=== PATIENT | male | born 1970 | race African-American/Black ===

== ENCOUNTER 2016-07-03 02:00 | Emergency (ER) ==
[2016-07-03 02:09] VITALS: BP 130/83; TEMP 98.4; BMI 32.0
[2016-07-03 02:54] LABS: BASOPHILS # (AUTO) 0.1 K/uL (0-0.2); BASOPHILS % (AUTO) 0.7 % (0.0-3.0); EOSINOPHILS # (AUTO) 0.1 K/ul (0.0-0.7); EOSINOPHILS % (AUTO) 1.5 % (0.0-7.0); HEMATOCRIT 43.5 % (42.0-52.0); HEMOGLOBIN 14.5 g/dl (14.0-18.0); IMMATURE GRANULOCYTE % (AUTO) 0.1 % (0.0-5.0); LYMPHOCYTES # (AUTO) 2.8 K/uL (0.60-3.4); LYMPHOCYTES % (AUTO) 33.7 (10.0-50.0); MEAN CORPUSCULAR HGB CONC 33.3 (31.8-35.4); MEAN CORPUSCULAR VOLUME 89.9 fl (80.0-94.0); MONOCYTES # (AUTO) 0.9 K/uL (0.4-2.0); MONOCYTES % (AUTO) 10.2 (0-10); NEUTROPHILS # (AUTO) 4.5 K/ul (2.0-6.9); NEUTROPHILS % (AUTO) 53.8; PLATELET COUNT 311 10^3/uL (140-440); RED BLOOD COUNT 4.84 10^6/ul (4.70-6.10); WHITE BLOOD COUNT 8.42 K/ul (4.2-10.2)
[2016-07-03 03:02] LABS: BILIRUBIN,URINE Negative (NEGATIVE); KETONES,URINE Negative (NEGATIVE); LEUKOCYTE ESTERASE ,URINE Negative (NEGATIVE); NITRITE,URINE Negative (NEGATIVE); PROTEIN,URINE Negative (NEGATIVE); URINE, BLOOD Negative (NEGATIVE)
[2016-07-03 03:03] LABS: ADD URINE MICROSCOPIC NO
[2016-07-03 03:16] LABS: COCAIN SCREEN,URINE NEGATIVE (NEGATIVE)
[2016-07-03 03:44] LABS: ALBUMIN 3.8 g/dL (3.4-5.0); ALBUMIN/GLOBULIN RATIO 0.93; ANION GAP 15.2; BILIRUBIN,TOTAL 1.07 mg/dL (0.00-1.20); BUN/CREATININE RATIO 7.01; CALCIUM 9.5 mg/dL (8.2-10.2); CREATININE 1.14 mg/dL (0.60-1.10); POTASSIUM 4.2 mmol/L (3.5-5.1); TOTAL PROTEIN 7.9 g/dL (6.4-8.2)
--- NOTE | 2016-07-03 05:15 | ED.PDOC ---
[id number] Complaint: wants to go to [facility] and get [facility]s adjusted Time Seen by Physician: 05:13 Mode of Arrival: Walk-In Information Source: Patient Exam Limitations: No limitations Primary Care Provider: ELLIOT LOPEZ Nursing and Triage Documentation Reviewed and Agree: Yes Psychological Complaint Exam - Psychiatric Complaint/Exam Patient Complains Of: Present: Other Onset/Duration: uknown Symptoms Are: Still present Timing: Constant Episodes Lasting: Days Initial Severity: Moderate Current Severity: Severe Character: Present: Manic. Absent: Depressed, Fearful, Anxious, Angry, Frustrated Aggravating: Reports: Medication noncompliance Associated Signs And Symptoms: Reports: Paranoid behavior, Sleep disturbance. Denies: Hostile, Confused, Hallucinating, Appetite change Completed Suicide Risk Factors: None Patient In Custody Of Police: No Social Withdrawal Present: No Social Isolation Present: No Prior Suicide Attempt: No Injury From Prior Suicide Attempt: No Related Surgical History: Reports: None Patient Uncooperative For Exam: No Mood: Present: Paranoid, Manic, Agitated Appearance: Present: Clean Thought Process: Present: Illogical Insight: Present: Poor Memory: Intact Judgement: Normal Danger To Others: No Patient Medically Stable For: Psych evaluation Differential Diagnoses: Bipolar Disorder, Schizophrenia Review of Systems - Review Of Systems Constitutional: Reports: No symptoms Eyes: Reports: No symptoms Ears, Nose, Mouth, Throat: Reports: No symptoms Respiratory: Reports: No symptoms Cardiac: Reports: No symptoms GI: Reports: No symptoms : Reports: No symptoms Musculoskeletal: Reports: No symptoms Skin: Reports: No symptoms Neurological: Reports: No symptoms Endocrine: Reports: No symptoms Hematologic/Lymphatic: Reports: No symptoms All Other Systems: Reviewed and Negative Past Medical History - Past Medical History Endocrine: Reports: Unknown Cardiovascular: Reports: Unknown Respiratory: Reports: Unknown Hematological: Reports: Unknown Gastrointestinal: Reports: Unknown Genitourinary: Reports: Unknown Neuro/Psych: Reports: Unknown Musculoskeletal: Reports: Unknown Cancer: Reports: Unknown - Surgical History General Surgical History: Reports: Unknown - Family History Family History: Reports: Unknown - Social History Smoking Status: Former smoker Hx Substance Use: No Alcohol Screening: Occasionally Lives: With family - Immunizations Tetanus Shot up to Date: (UNKNOWN) Physical Exam - Physical Exam Appearance: Well-appearing Eyes: ADELINA, EOMI, Conjunctiva clear ENT: Ears normal, Nose normal, Oropharynx normal Neck: Supple Respiratory: Airway patent, Breath sounds clear, Breath sounds equal, Respirations nonlabored Cardiovascular: RRR, Pulses normal, No rub, No murmur GI/: Soft, Nontender, No masses, Bowel sounds normal, No Organomegaly Musculoskeletal: Normal strength Skin: Warm, Dry, Normal color Neurological: Sensation intact, Motor intact, Reflexes intact, Cranial nerves intact, Alert, Oriented Psychiatric: Affect appropriate, Mood appropriate Critical Care Note - Critical Care Note Total Time (mins): 0 Course - Course Hematology/Chemistry: 07/03/16 02:45 07/03/16 02:45 Orders, Labs, Meds: Lab Review 07/03/16 07/03/16 02:41 02:45 WBC 8.42 RBC 4.84 Hgb 14.5 Hct 43.5 MCV 89.9 MCH 30.0 MCHC 33.3 RDW Coeff of [place] 13.4 Plt Count 311 Immature Gran % (Auto) 0.1 Neut % (Auto) 53.8 Lymph % (Auto) 33.7 [place] % (Auto) 10.2 H Eos % (Auto) 1.5 Baso % (Auto) 0.7 Immature Gran # (Auto) 0.0 Neut # 4.5 Lymph # 2.8 [place] # 0.9 Eos # 0.1 Baso # 0.1 Sodium 138 Potassium 4.2 Chloride 103 Carbon Dioxide 24 Anion Gap 15.2 BUN 8 Creatinine 1.14 H Estimated GFR (MDRD) 83.00 BUN/Creatinine Ratio 7.01 Glucose 109 H Calcium 9.5 Total Bilirubin 1.07 AST 26 ALT 25 Alkaline Phosphatase 70 Total Protein 7.9 Albumin 3.8 Globulin 4.1 Albumin/Globulin Ratio 0.93 TSH 1.974 Urine Color Yellow Urine Clarity Clear Urine pH 6.0 Ur Specific [place] 1.010 Urine Protein Negative Urine Glucose (UA) Negative Urine Ketones Negative Urine Blood Negative Urine Nitrite Negative Urine Bilirubin Negative Urine Urobilinogen 0.2 Ur Leukocyte Esterase Negative Urine Opiates Screen Negative Ur Oxycodone Screen Negative Urine Methadone Screen Negative Ur Propoxyphene Screen Negative Ur Barbiturates Screen Negative U Tricyclic Antidepress Negative Ur Phencyclidine Scrn Negative Ur Amphetamine Screen Negative U Methamphetamines Scrn Negative U Benzodiazepines Scrn Positive Urine Cocaine Screen Negative U Cannabinoids Screen Negative Plasma/Serum Alcohol < 10.0 Orders Category Date Time Status EKG-(ED ONLY) Stat CARDIO 07/03/16 02:07 Completed Mental Health Consult [ED MENTAL HEALTH CONSULT] .ONCE EMERGENCY 07/03/16 02: 14 Active CBC W/ AUTO DIFF Stat LAB 07/03/16 02:45 Completed COMPREHENSIVE METABOLIC PANEL Stat LAB 07/03/16 02:45 Completed ETOH LEVEL [BLOOD ALCOHOL] Stat LAB 07/03/16 02:45 Completed TSH [THYROID STIMULATING HORMONE] Stat LAB 07/03/16 02:45 Completed URINALYSIS C & S IF INDICATED Stat LAB 07/03/16 02:41 Completed URINE DRUG SCREEN (RAPID FOR ED) [DRUG SCREEN, URINE, LAB 07/03/16 02:41 Completed RAPID] Stat mental health consulted--refused to go anywhere but [facility] --they were contacted --did not feel he would benefit from their services at this time Vital Signs: Temp Pulse Resp BP Pulse Ox 07/03/16 02:01 98.4 F 116 H 20 130/83 99 Departure - Departure Time of Disposition: 05:16 Disposition: HOME SELF-CARE Discharge Problem: Bipolar 1 disorder Instructions: Bipolar Disorder (ED) Condition: Good Pt referred to PMD for follow-up: Yes Additional Instructions: Follow up with counselor today. Allergies/Adverse Reactions: Allergies No Known Allergies Allergy (Verified 07/03/16 02:09) Home Medications: Ambulatory Orders Lorazepam 2 mg PO TID 05/21/14 Haloperidol 10 mg PO BID 04/30/15 Transfer Form Completed: Yes Disposition Discussed With: Patient
== END 2016-07-03 05:44 | disposition home or self-care (01) ==
LOC: ED 02:00
DX: F31.9 Bipolar disorder, unspecified (principal); Z79.899 Other long term (current) drug therapy
CPT/HCPCS: 36415; 80053; 80306; 80307; 81001; 84443; 85025; 93005; 93010; 99283

== ENCOUNTER 2016-09-21 16:01 | Outpatient (CLI) ==
[2016-09-21 17:03] LABS: ALBUMIN 3.4 g/dL (3.4-5.0); ALBUMIN/GLOBULIN RATIO 0.83; ANION GAP 12.9; BILIRUBIN,TOTAL 0.91 mg/dL (0.00-1.20); BUN/CREATININE RATIO 9.25; CALCIUM 9.3 mg/dL (8.2-10.2); CHOL/HDL RATIO 4.6 (4.5-6.4); CREATININE 1.08 mg/dL (0.60-1.10); POTASSIUM 3.9 mmol/L (3.5-5.1); TOTAL PROTEIN 7.5 g/dL (6.4-8.2)
== END 2016-09-21 16:02 | disposition home or self-care (01) ==
LOC: LAB 16:01
PROVIDERS: ATTEND Nurse Practitioner Family
DX: F25.9 Schizoaffective disorder, unspecified (principal); E78.5 Hyperlipidemia, unspecified
CPT/HCPCS: 36415; 80053; 80061

== ENCOUNTER 2017-04-10 17:54 | Inpatient (IN) ==
[2017-04-10 18:02] VITALS: BP 155/87; TEMP 98; BMI 32.3
[2017-04-10] MEDS ORDERED: HALDOL IM STA (18:06)
[2017-04-10] MEDS ORDERED: ATIVAN IM STA (18:06)
[2017-04-10] MEDS ORDERED: COGENTIN IM STA (18:06)
--- NOTE | 2017-04-10 18:19 | ED.PDOC ---
General Stated Complaint: brought in by family--forced rapid speech with flight of ideas and hallucinations--recently had haldol discontinued Time Seen by Physician: 18:00 Mode of Arrival: Walk-In Information Source: Patient, Family Exam Limitations: No limitations Nursing and Triage Documentation Reviewed and Agree: Yes <GALEDONYA - Last Filed: 04/10/17 18:17> <KEVIN LAWTON - Last Filed: 04/10/17 22:47> ED Provider: Dr. KEVIN LAWTON Chief Complaint: Psychiatric Complaint Primary Care Provider: ELLIOT LOPEZ Psychological Complaint Exam - Psychiatric Complaint/Exam Patient Complains Of: Present: Other Onset/Duration: a few days Symptoms Are: Still present Timing: Constant Initial Severity: Mild Current Severity: Mild Character: Present: Manic, Anxious, Frustrated. Absent: Depressed, Fearful, Angry Aggravating: Reports: None Associated Signs And Symptoms: Reports: Hallucinating, Paranoid behavior, Sleep disturbance. Denies: Hostile, Confused, Appetite change Completed Suicide Risk Factors: Male Patient Accompanied By: Family Patient In Custody Of Police: No Social Withdrawal Present: No Social Isolation Present: No Prior Suicide Attempt: No Injury From Prior Suicide Attempt: No Related Surgical History: Reports: None Patient Uncooperative For Exam: No Mood: Present: Paranoid, Hallucinating, Manic, Agitated, Anxious. Absent: Depressed, Angry, Guarded Appearance: Present: Clean Thought Process: Present: Flight of ideas Insight: Present: Limited Memory: Intact Judgement: Impaired Patient Medically Stable For: Psych evaluation, Referral, Transfer Differential Diagnoses: Bipolar Disorder, Acute Psychosis, Schizophrenia <GALEDONYA - Last Filed: 04/10/17 18:17> Review of Systems - Review Of Systems Constitutional: Reports: No symptoms Eyes: Reports: No symptoms Ears, Nose, Mouth, Throat: Reports: No symptoms Respiratory: Reports: No symptoms Cardiac: Reports: No symptoms GI: Reports: No symptoms : Reports: No symptoms Musculoskeletal: Reports: No symptoms Skin: Reports: No symptoms Neurological: Reports: Cognitive dysfunction Endocrine: Reports: No symptoms Hematologic/Lymphatic: Reports: No symptoms All Other Systems: Reviewed and Negative <GALEDONYA - Last Filed: 04/10/17 18:17> Past Medical History - Past Medical History Previously Healthy: No Endocrine: Reports: Unknown Cardiovascular: Reports: Unknown Respiratory: Reports: Unknown Hematological: Reports: Unknown Gastrointestinal: Reports: Unknown Genitourinary: Reports: Unknown Neuro/Psych: Reports: Bipolar Disorder Musculoskeletal: Reports: Unknown Cancer: Reports: Unknown - Surgical History General Surgical History: Reports: Unknown - Family History Family History: Reports: Unknown - Social History Smoking Status: Former smoker Hx Substance Use: No Alcohol Screening: Occasionally Lives: With family <DONYA BEASLEY - Last Filed: 04/10/17 18:17> Physical Exam - Physical Exam Appearance: Well-appearing, No pain distress, Well-nourished Eyes: ADELINA ENT: Ears normal, Nose normal, Oropharynx normal Neck: Supple Respiratory: Airway patent, Breath sounds clear, Breath sounds equal, Respirations nonlabored Cardiovascular: RRR, Pulses normal, No rub, No murmur GI/: Soft, Nontender, No masses, Bowel sounds normal, No Organomegaly Musculoskeletal: Normal strength, ROM intact, No edema, No calf tenderness Skin: Warm, Dry, Normal color Neurological: Alert, Disoriented Psychiatric: Affect appropriate, Mood appropriate <GALEDONYA - Last Filed: 04/10/17 18:17> Re-Evaluation - Re-Evaluation Time of Re-Evaluation: 22:30 (patient will be waiting to be transfered ) Status: Improved (much calmer ) <KEVIN LAWTON - Last Filed: 04/10/17 22:47> Critical Care Note - Critical Care Note Total Time (mins): 0 <KEVIN ALWTON - Last Filed: 04/10/17 22:47> Course - Course Hematology/Chemistry: 04/10/17 18:20 04/10/17 18:20 <KEVIN LAWTON - Last Filed: 04/10/17 22:47> - Course Orders, Labs, Meds: Lab Review 04/10/17 04/10/17 04/10/17 18:20 18:20 18:56 WBC 7.85 RBC 4.45 L Hgb 13.7 L Hct 38.9 L MCV 87.4 MCH 30.8 MCHC 35.2 RDW Coeff of Willie 13.2 Plt Count 314 Immature Gran % (Auto) 0.1 Neut % (Auto) 58.6 Lymph % (Auto) 32.5 [place] % (Auto) 7.4 Eos % (Auto) 0.6 Baso % (Auto) 0.8 Immature Gran # (Auto) 0.0 Neut # 4.6 Lymph # 2.6 [place] # 0.6 Eos # 0.1 Baso # 0.1 Sodium 137 Potassium 3.9 Chloride 104 Carbon Dioxide 25 Anion Gap 11.9 BUN 10 Creatinine 1.22 H Estimated GFR (MDRD) 77.00 BUN/Creatinine Ratio 8.19 Glucose 114 H Calcium 10.1 Total Bilirubin 1.62 H AST 39 H ALT 23 Alkaline Phosphatase 72 Total Protein 8.1 Albumin 4.0 Globulin 4.1 Albumin/Globulin Ratio 0.98 TSH 1.127 Urine Color Urine Clarity Urine pH Ur Specific [place] Urine Protein Urine Glucose (UA) Urine Ketones Urine Blood Urine Nitrite Urine Bilirubin Urine Urobilinogen Ur Leukocyte Esterase Salicylate Level mg/dL < 5.0 Urine Opiates Screen Negative Ur Oxycodone Screen Negative Urine Methadone Screen Negative Ur Propoxyphene Screen Negative Acetaminophen < 3 L Ur Barbiturates Screen Negative U Tricyclic Antidepress Negative Ur Phencyclidine Scrn Negative Ur Amphetamine Screen Negative U Methamphetamines Scrn Negative U Benzodiazepines Scrn Positive Urine Cocaine Screen Negative U Cannabinoids Screen Negative Plasma/Serum Alcohol < 10.0 04/10/17 18:56 WBC RBC Hgb Hct MCV MCH MCHC RDW Coeff of Willie Plt Count Immature Gran % (Auto) Neut % (Auto) Lymph % (Auto) [place] % (Auto) Eos % (Auto) Baso % (Auto) Immature Gran # (Auto) Neut # Lymph # [place] # Eos # Baso # Sodium Potassium Chloride Carbon Dioxide Anion Gap BUN Creatinine Estimated GFR (MDRD) BUN/Creatinine Ratio Glucose Calcium Total Bilirubin AST ALT Alkaline Phosphatase Total Protein Albumin Globulin Albumin/Globulin Ratio TSH Urine Color Yellow Urine Clarity Clear Urine pH 6.0 Ur Specific [place] <=1.005 Urine Protein Negative Urine Glucose (UA) Negative Urine Ketones Negative Urine Blood Negative Urine Nitrite Negative Urine Bilirubin Negative Urine Urobilinogen 0.2 Ur Leukocyte Esterase Negative Salicylate Level mg/dL Urine Opiates Screen Ur Oxycodone Screen Urine Methadone Screen Ur Propoxyphene Screen Acetaminophen Ur Barbiturates Screen U Tricyclic Antidepress Ur Phencyclidine Scrn Ur Amphetamine Screen U Methamphetamines Scrn U Benzodiazepines Scrn Urine Cocaine Screen U Cannabinoids Screen Plasma/Serum Alcohol Orders Category Date Time Status CBC W/ AUTO DIFF Stat LAB 04/10/17 18:20 Completed COMPREHENSIVE METABOLIC PANEL Stat LAB 04/10/17 18:20 Completed ETOH LEVEL [BLOOD ALCOHOL] Stat LAB 04/10/17 18:20 Completed SALICYLATE Stat LAB 04/10/17 18:20 Completed THYROID STIMULATING HORMONE Stat LAB 04/10/17 18:20 Completed TYLENOL LEVEL [ACETAMINOPHEN] Stat LAB 04/10/17 18:20 Completed URINALYSIS C & S IF INDICATED Stat LAB 04/10/17 18:56 Completed URINE DRUG SCREEN (RAPID FOR ED) [DRUG SCREEN, URINE, LAB 04/10/17 18:56 Completed RAPID] Stat Benztropine Mesylate Inj [Cogentin] MEDS 04/10/17 18:06 Discontinued 2 mg IM ONCE STA Haloperidol Lactate Inj [Haldol] MEDS 04/10/17 18:06 Discontinued 5 mg IM ONCE STA Lorazepam Inj [Ativan] MEDS 04/10/17 18:06 Discontinued 2 mg IM ONCE STA Ziprasidone Mesylate [Geodon] MEDS 04/10/17 19:39 Discontinued 10 mg IM ONCE STA Medications Generic Name Dose Route Start Last Admin Trade Name Freq PRN Reason Stop Dose Admin Lorazepam 1 mg 04/10/17 22:24 Ativan IM Q4H PRN Agitation Lorazepam 1 mg 04/10/17 22:36 Ativan PO TID PRN Anxiety Ziprasidone 20 mg 04/10/17 22:36 Geodon IM Q4H PRN severe aggitation and Psychosi Discontinued Medications Generic Name Dose Route Start Last Admin Trade Name Freq PRN Reason Stop Dose Admin Benztropine Mesylate 2 mg 04/10/17 18:06 04/10/17 18:17 Cogentin IM 04/10/17 18:07 2 mg ONCE STA Administration Haloperidol Lactate 5 mg 04/10/17 18:06 04/10/17 18:16 Haldol IM 04/10/17 18:07 5 mg ONCE STA Administration Lorazepam 2 mg 04/10/17 18:06 04/10/17 18:16 Ativan IM 04/10/17 18:07 2 mg ONCE STA Administration Ziprasidone 10 mg 04/10/17 19:39 04/10/17 19:50 Geodon IM 04/10/17 19:40 10 mg ONCE STA Administration Vital Signs: Temp Pulse Resp BP Pulse Ox 04/10/17 17:58 98 F 101 H 20 155/87 H 98 Departure <DONYA BEASLEY - Last Filed: 04/10/17 18:17> - Departure Time of Disposition: 22:44 Pt referred to PMD for follow-up: No Disposition Discussed With: Patient, Family <KEVIN LAWTON - Last Filed: 04/10/17 22:47> - Departure Disposition: ADMITTED INPATIENT Discharge Problem: Psychosis, Bipolar affective disorder Condition: Fair Allergies/Adverse Reactions: Allergies No Known Allergies Allergy (Verified 07/03/16 02:09) Discharge Problem: Psychosis Qualifiers: Psychosis type: brief psychotic disorder Qualified Code(s): F23 - Brief psychotic disorder Bipolar affective disorder Qualifiers: Active/Remission status: currently active Current bipolar episode type: manic Current episode severity: severe Psychotic features: with psychotic features Qualified Code(s): F31.2 - Bipolar disorder, current episode manic severe with psychotic features
[2017-04-10] MEDS ORDERED: GEODON IM STA (19:39)
[2017-04-10] MEDS ORDERED: ATIVAN IM PRN (22:24)
[2017-04-10] MEDS ORDERED: ATIVAN PO PRN (22:36)
[2017-04-10] MEDS ORDERED: GEODON IM PRN (22:36)
[2017-04-11] MEDS ORDERED: ATIVAN ONE (03:35)
--- NOTE | 2017-06-24 14:11 | SSS ---
DATE OF SERVICE: 04/11/17 CHIEF COMPLAINT: Hallucination and paranoid behavior. He had been feeling weak , depressed. Not planning to hurt himself, but he has been seeing the things and he thinks that someone is trying to talk to him and he wanted to be getting some help. HISTORY OF PRESENT ILLNESS: The patient came to the emergency room and was seen by Dr. Giron in the ER. Blood pressure was 155/87. Initial blood work was normal. Mild anemia. Total bilirubin was 1.62. Drug screen was negative, except for Benzo positive. At that time, he was admitted to the hospital for observation and to be sent to [facility] or some other facility where he can be getting the treatment. REVIEW OF SYSTEMS: CONSTITUTIONAL: No night sweats. No fatigue, malaise, lethargy. No fever or chills. HEENT: Eyes: No visual changes. No eye pain. No eye discharge. ENT: No runny nose. No epistaxis. No sinus pain. No sore throat. No odynophagia. No ear pain. No congestion. RESPIRATORY: No cough, no congestion. No hemoptysis. No shortness of breath. CARDIOVASCULAR: No angina symptoms. No CHF symptoms. No atypical chest pain for CAD. No palpitations. No orthopnea. GASTROINTESTINAL: No abdominal pain. No nausea or vomiting. No diarrhea or constipation. No hematemesis. No hematochezia. GENITOURINARY: No dysuria. No hematuria. No obstructive symptoms. No discharge. No pain. No significant abnormal bleeding. MUSCULOSKELETAL: No musculoskeletal pain. No joint swelling. NEUROLOGICAL: Awake, alert, oriented to time, place and person. No headache. No neck pain. No syncope. No seizures. No dizziness. PSYCHIATRIC: Anxious and depressed. No suicidal thoughts. No homicidal thoughts. SKIN: No rash. No lesions. No wounds. ENDOCRINE: No unexplained weight loss. No weight gain. HEMATOLOGIC/LYMPHATIC: No anemia. No purpura. No petechiae. No prolonged or excessive bleeding. No palpable lymph nodes. PAST HISTORY: Hyperlipidemia Hypertension Schizophrenia Paranoid behavior Bipolar disorder PAST SURGICAL HISTORY: None. PERSONAL HISTORY: Does drink alcohol and smokes. No drugs. FAMILY HISTORY: High blood pressure. ALLERGIES: No known drug allergies. HOME MEDICATIONS: Amantadine, Lorazepam and Zocor. PHYSICAL EXAMINATION: GENERAL: The patient is awake, alert and oriented times three. Very restless. Anxious. VITAL SIGNS: Blood pressure 155/87, respiratory rate 20, heart rate 101, temperature 98.0, saturation 98. HEENT: Head normocephalic, atraumatic. Mucosa dry. Eyes: Extraocular muscles are intact. Pupils are equal, round and reactive to light and accommodation. Ears: No lesions. Nose appeared normal. Throat: No exudate or erythema. NECK: Supple. No JVD, no carotid bruit. No lymphadenopathy or thyromegaly. LUNGS: Clear to auscultation. Percussion note normal. Chest symmetrical. HEART: S1, S2, no S3. No murmurs. No cyanosis or clubbing. No ascites. Pulses: Dorsalis pedis and posterior tibial pulses +1 to +2 both sides. ABDOMEN: Soft. Nontender. Bowel sounds active. No CVA tenderness. No mass felt. EXTREMITIES: No edema. Full range of motion of all extremities, equal. NEUROLOGIC: No focal deficit. Cranial nerves II through XII are grossly intact. No headache, no double vision or headache. Anxious, flight of thoughts. SKIN: Not dry. Intact. Turgor - normal. LYMPHATIC: No palpable lymph nodes/no lymphedema. MUSCULOSKELETAL: Normal joints with no swelling. Muscle tone is normal. Old/present records reviewed Office records reviewed. LABS/EKG'S/X-RAY/ECHO/ABG: White count 7.85, hemoglobin 13.7, hematocrit 38.9, platelet count 314, sodium 137, potassium 3.9, chloride 104, bicarb 25, BUN 10, creatinine 1.22. Drug screen is benzo positive. ASSESSMENT: 1. HALLUCINATIONS AND DELUSIONS. NEEDING HELP 2. BIPOLAR 3. SCHIZOPHRENIA 4. DEPRESSION 5. ANXIETY 6. HYPERTENSION 7. DYSLIPIDEMIA PLAN: 1. Ruth placement, but the patient after admission been restless and did not want to stay. Signed out against medical advice. [facility] CENTERGloria
== END 2017-04-11 05:25 | disposition left against medical advice (07) | DRG 885 ==
LOC: ED 17:54 → SCU 21:57
PROVIDERS: ADMIT Emergency Medicine; ATTEND Emergency Medicine
DX: F23 Brief psychotic disorder (principal); F31.2 Bipolar disorder, current episode manic severe with psychotic features; F41.8 Other specified anxiety disorders; I10 Essential (primary) hypertension; E78.5 Hyperlipidemia, unspecified
CPT/HCPCS: 36415; 80053; 80306; 80307; 81001; 84443; 85025; 96372; 99223; 99285

== ENCOUNTER 2017-04-11 18:18 | Emergency (ER) ==
[2017-04-11] MEDS ORDERED: GEODON IM STA (18:20)
[2017-04-11] MEDS ORDERED: COGENTIN IM STA (18:21)
[2017-04-11] MEDS ORDERED: ATIVAN IM STA (18:21)
[2017-04-11 18:37] LABS: BASOPHILS % (AUTO) 0.6 % (0.0-3.0); EOSINOPHILS # (AUTO) 0.1 K/ul (0.0-0.7); EOSINOPHILS % (AUTO) 1.6 % (0.0-7.0); HEMATOCRIT 37.7 % (42.0-52.0); HEMOGLOBIN 13.2 g/dl (14.0-18.0); IMMATURE GRANULOCYTE % (AUTO) 0.1 % (0.0-5.0); LYMPHOCYTES # (AUTO) 2.3 K/uL (0.60-3.4); LYMPHOCYTES % (AUTO) 34.3 (10.0-50.0); MEAN CORPUSCULAR HEMOGLOBIN 30.6 pg (27.0-31.0); MEAN CORPUSCULAR VOLUME 87.5 fl (80.0-94.0); MONOCYTES # (AUTO) 0.5 K/uL (0.4-2.0); MONOCYTES % (AUTO) 7.9 (0-10); NEUTROPHILS # (AUTO) 3.8 K/ul (2.0-6.9); NEUTROPHILS % (AUTO) 55.5; PLATELET COUNT 287 10^3/uL (140-440); RED BLOOD COUNT 4.31 10^6/ul (4.70-6.10); WHITE BLOOD COUNT 6.82 K/ul (4.2-10.2)
[2017-04-11 18:46] VITALS: BP 113/64; TEMP 98.6; BMI 33.9
[2017-04-11 19:17] LABS: ACETAMINOPHEN < 3 ug/ml (10-30); ALANINE AMINOTRANSFERASE 22 U/L (12-78); ALBUMIN 3.6 g/dL (3.4-5.0); ALBUMIN/GLOBULIN RATIO 0.95; ALKALINE PHOSPHATASE 66 U/L (50-136); ANION GAP 12.9; ASPARTATE AMINO TRANSFERASE 35 U/L (15-37); BILIRUBIN,TOTAL 1.54 mg/dL (0.00-1.20); BLOOD UREA NITROGEN 10 mg/dL (7-18); BUN/CREATININE RATIO 8.69; CALCIUM 9.4 mg/dL (8.2-10.2); CARBON DIOXIDE 24 mmol/L (21-32); CHLORIDE 105 mmol/L (98-107); CREATININE 1.15 mg/dL (0.60-1.10); GLUCOSE 120 mg/dL (70-100); POTASSIUM 3.9 mmol/L (3.5-5.1); SALICYLATE < 5.0 mg/dL (2.8-20.0); SODIUM 138 mmol/L (136-145); TOTAL PROTEIN 7.4 g/dL (6.4-8.2)
[2017-04-11 19:53] LABS: ADD URINE MICROSCOPIC NO; BILIRUBIN,URINE Negative (NEGATIVE); KETONES,URINE Negative (NEGATIVE); LEUKOCYTE ESTERASE ,URINE Negative (NEGATIVE); NITRITE,URINE Negative (NEGATIVE); PH,URINE 6.5 (5-9); PROTEIN,URINE Negative (NEGATIVE); URINE, BLOOD Negative (NEGATIVE)
[2017-04-11 20:02] LABS: COCAIN SCREEN,URINE NEGATIVE (NEGATIVE)
--- NOTE | 2017-04-12 05:32 | ED.PDOC ---
General ED Provider: Dr. DONYA ELIZALDE-ER Chief Complaint: Psychiatric Complaint Stated Complaint: brought in by police causing disturbance at local [place] Time Seen by Physician: 18:20 Mode of Arrival: Walk-In Information Source: Patient, Police Exam Limitations: No limitations Primary Care Provider: ELLIOT LOPEZ Nursing and Triage Documentation Reviewed and Agree: Yes Psychological Complaint Exam - Psychiatric Complaint/Exam Patient Complains Of: Present: Other Onset/Duration: 24hrs Symptoms Are: Still present Timing: Constant Initial Severity: Mild Current Severity: Moderate Character: Present: Manic, Anxious, Frustrated Aggravating: Reports: None Associated Signs And Symptoms: Reports: Paranoid behavior, Sleep disturbance. Denies: Hostile, Confused, Hallucinating Completed Suicide Risk Factors: Male Patient Accompanied By: Family Patient In Custody Of Police: No Social Withdrawal Present: No Social Isolation Present: No Prior Suicide Attempt: No Injury From Prior Suicide Attempt: No Related Surgical History: Reports: None Patient Uncooperative For Exam: No Mood: Present: Paranoid, Hallucinating, Manic, Agitated, Anxious Appearance: Present: Clean Thought Process: Present: Flight of ideas Insight: Present: Poor Memory: Intact Judgement: Impaired Danger To Others: No Patient Medically Stable For: Psych evaluation, Referral, Transfer Differential Diagnoses: Bipolar Disorder, Acute Psychosis, Schizophrenia Review of Systems - Review Of Systems Constitutional: Reports: No symptoms Eyes: Reports: No symptoms Ears, Nose, Mouth, Throat: Reports: No symptoms Respiratory: Reports: No symptoms Cardiac: Reports: No symptoms GI: Reports: No symptoms : Reports: No symptoms Musculoskeletal: Reports: No symptoms Skin: Reports: No symptoms Neurological: Reports: Emotional problems Endocrine: Reports: No symptoms Hematologic/Lymphatic: Reports: No symptoms All Other Systems: Reviewed and Negative Past Medical History - Past Medical History Previously Healthy: No Endocrine: Reports: Unknown Cardiovascular: Reports: Unknown Respiratory: Reports: Unknown Hematological: Reports: Unknown Gastrointestinal: Reports: Unknown Genitourinary: Reports: Unknown Neuro/Psych: Reports: Bipolar Disorder Musculoskeletal: Reports: Unknown Cancer: Reports: Unknown - Surgical History General Surgical History: Reports: Unknown - Family History Family History: Reports: Unknown - Social History Smoking Status: Former smoker Hx Substance Use: No Alcohol Screening: Occasionally - Immunizations Tetanus Shot up to Date: No Physical Exam - Physical Exam Appearance: Well-appearing, No pain distress, Well-nourished Eyes: ADELINA ENT: Ears normal, Nose normal, Oropharynx normal Neck: Supple Respiratory: Airway patent, Breath sounds clear, Breath sounds equal, Respirations nonlabored Cardiovascular: RRR, Pulses normal, No rub, No murmur GI/: Soft, Nontender, No masses, Bowel sounds normal, No Organomegaly Musculoskeletal: Normal strength, ROM intact, No edema, No calf tenderness Skin: Warm, Dry, Normal color Neurological: Sensation intact, Motor intact, Reflexes intact, Cranial nerves intact, Alert, Oriented Psychiatric: Mood appropriate, Anxious Critical Care Note - Critical Care Note Total Time (mins): 0 Course - Course Hematology/Chemistry: 04/11/17 18:30 04/11/17 18:30 Orders, Labs, Meds: Lab Review 04/11/17 04/11/17 04/11/17 18:30 18:30 19:44 WBC 6.82 RBC 4.31 L Hgb 13.2 L Hct 37.7 L MCV 87.5 MCH 30.6 MCHC 35.0 RDW Coeff of [place] 13.3 Plt Count 287 Immature Gran % (Auto) 0.1 Neut % (Auto) 55.5 Lymph % (Auto) 34.3 [place] % (Auto) 7.9 Eos % (Auto) 1.6 Baso % (Auto) 0.6 Immature Gran # (Auto) 0.0 Neut # 3.8 Lymph # 2.3 [place] # 0.5 Eos # 0.1 Baso # 0.0 Sodium 138 Potassium 3.9 Chloride 105 Carbon Dioxide 24 Anion Gap 12.9 BUN 10 Creatinine 1.15 H Estimated GFR (MDRD) 83.00 BUN/Creatinine Ratio 8.69 Glucose 120 H Calcium 9.4 Total Bilirubin 1.54 H AST 35 ALT 22 Alkaline Phosphatase 66 Total Protein 7.4 Albumin 3.6 Globulin 3.8 Albumin/Globulin Ratio 0.95 TSH 1.568 Urine Color Yellow Urine Clarity Clear Urine pH 6.5 Ur Specific [place] 1.010 Urine Protein Negative Urine Glucose (UA) Negative Urine Ketones Negative Urine Blood Negative Urine Nitrite Negative Urine Bilirubin Negative Urine Urobilinogen 0.2 Ur Leukocyte Esterase Negative Salicylate Level mg/dL < 5.0 Urine Opiates Screen Ur Oxycodone Screen Urine Methadone Screen Ur Propoxyphene Screen Acetaminophen < 3 L Ur Barbiturates Screen U Tricyclic Antidepress Ur Phencyclidine Scrn Ur Amphetamine Screen U Methamphetamines Scrn U Benzodiazepines Scrn Urine Cocaine Screen U Cannabinoids Screen Plasma/Serum Alcohol < 10.0 04/11/17 04/12/17 19:44 13:52 WBC RBC Hgb Hct MCV MCH MCHC RDW Coeff of [place] Plt Count Immature Gran % (Auto) Neut % (Auto) Lymph % (Auto) [place] % (Auto) Eos % (Auto) Baso % (Auto) Immature Gran # (Auto) Neut # Lymph # [place] # Eos # Baso # Sodium Potassium Chloride Carbon Dioxide Anion Gap BUN Creatinine Estimated GFR (MDRD) BUN/Creatinine Ratio Glucose Calcium Total Bilirubin AST ALT Alkaline Phosphatase Total Protein Albumin Globulin Albumin/Globulin Ratio TSH Urine Color Urine Clarity Urine pH Ur Specific [place] Urine Protein Urine Glucose (UA) Urine Ketones Urine Blood Urine Nitrite Urine Bilirubin Urine Urobilinogen Ur Leukocyte Esterase Salicylate Level mg/dL Urine Opiates Screen Negative Negative Ur Oxycodone Screen Negative Negative Urine Methadone Screen Negative Negative Ur Propoxyphene Screen Negative Negative Acetaminophen Ur Barbiturates Screen Negative Negative U Tricyclic Antidepress Negative Negative Ur Phencyclidine Scrn Negative Negative Ur Amphetamine Screen Negative Negative U Methamphetamines Scrn Negative Negative U Benzodiazepines Scrn Positive Positive Urine Cocaine Screen Negative Negative U Cannabinoids Screen Negative Negative Plasma/Serum Alcohol Orders Category Date Time Status EKG-(ED ONLY) Stat CARDIO 04/12/17 08:57 Completed TRANSFER TO OUTSIDE FACILITY .TO OTHER OUTSIDE FACILITY CARE 04/12/17 05:34 Active (SEE ORDER DETAILS) WRITE TRANSFER/SBAR NOTE ONCE CARE 04/12/17 05:34 Active DISCHARGE ASSESSMENT ONCE DISCHARGE 04/12/17 05:34 Active WRITE DISCHARGE NOTE ONCE DISCHARGE 04/12/17 05:34 Active CBC W/ AUTO DIFF Stat LAB 04/11/17 18:30 Completed COMPREHENSIVE METABOLIC PANEL Stat LAB 04/11/17 18:30 Completed ETOH LEVEL [BLOOD ALCOHOL] Stat LAB 04/11/17 18:30 Completed SALICYLATE Stat LAB 04/11/17 18:30 Completed THYROID STIMULATING HORMONE Stat LAB 04/11/17 18:30 Completed TYLENOL LEVEL [ACETAMINOPHEN] Stat LAB 04/11/17 18:30 Completed URINALYSIS C & S IF INDICATED Stat LAB 04/11/17 19:44 Completed URINE DRUG SCREEN (RAPID FOR ED) [DRUG SCREEN, URINE, LAB 04/11/17 19:44 Completed RAPID] Stat URINE DRUG SCREEN (RAPID FOR ED) [DRUG SCREEN, URINE, LAB 04/12/17 13:52 Completed RAPID] Stat Benztropine Mesylate Inj [Cogentin] MEDS 04/11/17 18:21 Discontinued 2 mg IM ONCE STA Haloperidol Lactate Inj [Haldol] MEDS 04/12/17 08:26 Discontinued 5 mg IM ONCE STA Lorazepam Inj [Ativan] MEDS 04/11/17 18:21 Discontinued 2 mg IM ONCE STA Lorazepam Inj [Ativan] MEDS 04/12/17 08:27 Discontinued 2 mg IM ONCE STA Ziprasidone Mesylate [Geodon] MEDS 04/11/17 18:20 Discontinued 10 mg IM ONCE STA Medications Discontinued Medications Generic Name Dose Route Start Last Admin Trade Name Freq PRN Reason Stop Dose Admin Benztropine Mesylate 2 mg 04/11/17 18:21 04/11/17 18:46 Cogentin IM 04/11/17 18:22 2 mg ONCE STA Administration Haloperidol Lactate 5 mg 04/12/17 08:26 04/12/17 08:45 Haldol IM 04/12/17 08:27 5 mg ONCE STA Administration Lorazepam 2 mg 04/11/17 18:21 04/11/17 18:46 Ativan IM 04/11/17 18:22 2 mg ONCE STA Administration Lorazepam 2 mg 04/12/17 08:27 04/12/17 08:44 Ativan IM 04/12/17 08:28 2 mg ONCE STA Administration Ziprasidone 10 mg 04/11/17 18:20 04/11/17 18:46 Geodon IM 04/11/17 18:21 10 mg ONCE STA Administration Vital Signs: Temp Pulse Resp BP Pulse Ox 04/11/17 18:19 98.6 F 80 18 113/64 98 Departure - Departure Time of Disposition: 05:33 Disposition: TSF TO PSYCH HOSP/UNIT Discharge Problem: Bipolar affective disorder Instructions: Bipolar Disorder (ED), Psychotic Disorder (ED) Condition: Good Pt referred to PMD for follow-up: No Allergies/Adverse Reactions: Allergies No Known Allergies Allergy (Verified 07/03/16 02:09) Transfer Form Completed: Yes Disposition Discussed With: Patient Discharge Problem: Bipolar affective disorder Qualifiers: Active/Remission status: currently active Current bipolar episode type: manic Current episode severity: moderate Qualified Code(s): F31.12 - Bipolar disorder , current episode manic without psychotic features, moderate
[2017-04-12] MEDS ORDERED: HALDOL IM STA (08:26)
[2017-04-12] MEDS ORDERED: ATIVAN IM STA (08:27)
[2017-04-12 14:14] LABS: COCAIN SCREEN,URINE NEGATIVE (NEGATIVE)
== END 2017-04-12 17:09 ==
LOC: ED 18:18
DX: F31.12 Bipolar disorder, current episode manic without psychotic features, moderate (principal)
CPT/HCPCS: 36415; 80053; 80306; 80307; 81001; 84443; 85025; 93005; 93010; 96372; 99284; 99285

== ENCOUNTER 2017-06-05 15:38 | Emergency (ER) ==
[2017-06-05] MEDS ORDERED: ASPIRIN CHEWABLE PO STA (15:41)
[2017-06-05 15:52] VITALS: BP 125/95; TEMP 98.4; BMI 31.1
--- NOTE | 2017-06-05 16:09 | DI ---
Exam: Single view chest x-ray. Date: 06/05/2017. Comparison: 09/21/2014. HISTORY: Chest pain. FINDINGS: The osseous structures are normal. The lungs are clear. The cardiac silhouette and pulmo nary vasculature are normal. Impression: No acute intrathoracic findings.
--- NOTE | 2017-06-05 16:50 | ED.PDOC ---
General ED Provider: Dr. KEVIN LAWTON Chief Complaint: Chest Pain Stated Complaint: pateint complains of chest pain for the past two days. Also has mild left arm numbness. Time Seen by Physician: 16:48 Mode of Arrival: Stretcher Information Source: Patient, EMT Exam Limitations: No limitations Primary Care Provider: ELLIOT LOPEZ Nursing and Triage Documentation Reviewed and Agree: Yes Reviewed sepsis parameters & appropriate labs ordered?: Yes System Inflammatory Response Syndrome: Not Applicable Sepsis Protocol: For patient's 13 years and over: Temp is 96.8 and below OR 101 and greater Pulse >90 BPM Resp >20/minute Acutely Altered Mental Status Are patient's symptoms suggestive of a new infection, such as: -Pneumonia -Skin, Soft Tissue -Endocarditis -UTI -Bone, Joint Infection -Implantable Device -Acute Abdominal Infection -Wound Infection -Meningitis -Blood Stream Catheter Infection -Unknown System Inflammatory Response Syndrome: Not Applicable Cardiovascular Complaint Exam - Chest Pain Complaint/Exam Onset: Sudden Duration: 2 days Symptoms Are: Still present Timing: Constant Initial Severity: Moderate Current Severity: Mild Location: Reports: Midsternal Pain Radiates: Reports: None Character: Reports: Sharp Aggravating: Reports: Movement, Deep breaths Alleviating: Reports: None Associated Signs and Symptoms: Denies: Diaphoresis, Nausea, Vomiting, Fever, Palpitations, Cough, Hemoptysis, Back pain, Abdominal pain, Dizziness, Short of air, Calf pain, Calf swelling Related History: Denies: Similar episode Related Surgical History: Reports: None History of Healthcare-Acquired Pneumonia: Reports: No AMI/ACS Risk Factors: Reports: None TAD Risk Factors: Reports: None Pulmonary Embolism Risk Factors: Reports: None Prior Care for this Complaint: No Recent Stress Test: No Recent Echo/LV Function: No JVD Present: No Subcutaneous Emphysema Present: No Diminshed Breath Sounds: No Reproducible Chest Wall Pain: No Bilateral Pulses Present: No Unequal Pulses Noted: No If Risk Factors for AMI/ACS Consider: EKG, Cardiac Enzymes, Serial Studies, Aspirin Baker Doughnut Consulted: No Differential Diagnoses: Acute MD, Chest Wall Pain Quality Indicators For Acute MD or Cardiac Chest Pain: EKG in 10min. Quality Indicator For Non-Traumatic Chest Pain/Syncope: EKG Performed Review of Systems - Review Of Systems Constitutional: Reports: No symptoms Eyes: Reports: No symptoms Ears, Nose, Mouth, Throat: Reports: No symptoms Respiratory: Reports: No symptoms Cardiac: Reports: Chest pain GI: Reports: No symptoms : Reports: No symptoms Musculoskeletal: Reports: No symptoms Skin: Reports: No symptoms Neurological: Reports: No symptoms Endocrine: Reports: No symptoms Hematologic/Lymphatic: Reports: No symptoms All Other Systems: Reviewed and Negative Past Medical History - Past Medical History Previously Healthy: No Endocrine: Reports: Unknown Cardiovascular: Reports: Unknown Respiratory: Reports: Unknown Hematological: Reports: Unknown Gastrointestinal: Reports: Unknown Genitourinary: Reports: Unknown Neuro/Psych: Reports: Bipolar Disorder Musculoskeletal: Reports: Unknown Cancer: Reports: Unknown - Surgical History General Surgical History: Reports: Unknown - Family History Family History: Reports: Unknown - Social History Smoking Status: Never smoker Hx Substance Use: No Alcohol Screening: Occasionally Physical Exam - Physical Exam Appearance: Well-appearing, Well-nourished Pain Distress: Mild Eyes: ADELINA, EOMI, Conjunctiva clear ENT: Ears normal, Nose normal, Oropharynx normal Respiratory: Airway patent, Breath sounds clear, Breath sounds equal, Respirations nonlabored Cardiovascular: RRR, Pulses normal, No rub, No murmur GI/: Soft, Nontender, No masses, Bowel sounds normal, No Organomegaly Musculoskeletal: Normal strength, ROM intact, No edema, No calf tenderness Skin: Warm, Dry, Normal color Neurological: Sensation intact, Motor intact, Reflexes intact, Cranial nerves intact, Alert, Oriented Psychiatric: Affect appropriate, Mood appropriate, Anxious Interpretation - Electrician Elevator Maintenance Rate: Normal Rhythm: Sinus Ectopy: None - EKG Interpretation Rate: Normal Rhythm: Sinus Ectopy: None [place]: NL ST Segment: Normal Critical Care Note - Critical Care Note Total Time (mins): 0 Course - Course Hematology/Chemistry: 06/05/17 15:55 06/05/17 15:55 Orders, Labs, Meds: Lab Review 06/05/17 06/05/17 06/05/17 15:55 15:55 17:48 WBC 9.50 RBC 4.71 Hgb 14.0 Hct 40.9 L MCV 86.8 MCH 29.7 MCHC 34.2 RDW Coeff of Willie 13.1 Plt Count 297 Immature Gran % (Auto) 0.5 Neut % (Auto) 62.8 Lymph % (Auto) 26.0 [place] % (Auto) 8.7 Eos % (Auto) 1.5 Baso % (Auto) 0.5 Immature Gran # (Auto) 0.1 Neut # 6.0 Lymph # 2.5 [place] # 0.8 Eos # 0.1 Baso # 0.1 Sodium 141 Potassium 4.0 Chloride 103 Carbon Dioxide 27 Anion Gap 15.0 BUN 13 Creatinine 0.95 Estimated GFR (MDRD) 103.00 BUN/Creatinine Ratio 13.68 Glucose 103 H Calcium 9.8 Total Bilirubin 0.7 AST 30 ALT 30 Alkaline Phosphatase 101 Total Creatine Kinase 412 CK-MB (CK-2) 2.8 CK-MB (CK-2) % 0.71526 Troponin I < 0.0100 0.0120 Total Protein 8.1 Albumin 3.6 Globulin 4.5 Albumin/Globulin Ratio 0.80 Orders Category Date Time Status EKG-(ED ONLY) Stat CARDIO 06/05/17 15:41 Completed CBC W/ AUTO DIFF Stat LAB 06/05/17 15:55 Completed COMPREHENSIVE METABOLIC PANEL Stat LAB 06/05/17 15:55 Completed CREATINE KINASE Stat LAB 06/05/17 15:55 Completed TROPONIN I Stat LAB 06/05/17 15:55 Completed TROPONIN I Stat LAB 06/05/17 17:48 Completed Aspirin [Aspirin Chewable] MEDS 06/05/17 15:41 Discontinued 324 mg PO ONCE STA CHEST, 1V AP ONLY Stat RADS 06/05/17 15:41 Completed Medications Discontinued Medications Generic Name Dose Route Start Last Admin Trade Name Freq PRN Reason Stop Dose Admin Aspirin 324 mg 06/05/17 15:41 06/05/17 16:09 Aspirin Chewable PO 06/05/17 15:42 324 mg ONCE STA Administration Vital Signs: Temp Pulse Resp BP Pulse Ox 06/05/17 16:41 73 22 98 06/05/17 15:40 98.4 F 76 20 125/95 H 97 JORI Risk Score JORI Risk Score: Risk Score Odds of by 30D 0 0.1 (0.1-0.2) 1 0.3 (0.2-0.3) 2 0.4 (0.3-0.5) 3 0.7 (0.6-0.9) 4 1.2 (1.0-1.5) 5 2.2 (1.9-2.6) 6 3.0 (2.5-3.6) 7 4.8 (3.8-6.1) Departure - Departure Time of Disposition: 16:50 Disposition: HOME SELF-CARE Discharge Problem: Chest pain Instructions: Chest Pain (ED) Condition: Stable Pt referred to PMD for follow-up: Yes Additional Instructions: Follow up with PCP in 3 days Allergies/Adverse Reactions: Allergies No Known Allergies Allergy (Verified 07/03/16 02:09) Home Medications: Ambulatory Orders Haloperidol [Haldol] 1 mg PO BID 06/05/17 Transfer Form Completed: No Disposition Discussed With: Patient
== END 2017-06-05 18:27 | disposition home or self-care (01) ==
LOC: ED 15:38
DX: R07.9 Chest pain, unspecified (principal); R20.0 Anesthesia of skin
CPT/HCPCS: 36415; 80053; 82550; 82553; 84484; 85025; 93005; 93010; 99283

== ENCOUNTER 2017-07-06 01:26 | Emergency (ER) ==
[2017-07-06 01:27] VITALS: BMI 31.1
--- NOTE | 2017-07-06 01:46 | ED.PDOC ---
General ED Provider: Dr. DONYA ELIZALDE-ER Chief Complaint: Medication Refill Stated Complaint: i just need a refill of my meds Time Seen by Physician: 01:44 Mode of Arrival: Walk-In Information Source: Patient Exam Limitations: No limitations Primary Care Provider: ELLIOT LOPEZ Nursing and Triage Documentation Reviewed and Agree: Yes Reviewed sepsis parameters & appropriate labs ordered?: Yes System Inflammatory Response Syndrome: Not Applicable Sepsis Protocol: For patient's 13 years and over: Temp is 96.8 and below OR 101 and greater Pulse >90 BPM Resp >20/minute Acutely Altered Mental Status Are patient's symptoms suggestive of a new infection, such as: -Pneumonia -Skin, Soft Tissue -Endocarditis -UTI -Bone, Joint Infection -Implantable Device -Acute Abdominal Infection -Wound Infection -Meningitis -Blood Stream Catheter Infection -Unknown Miscellaneous Complaint Exam - Physical Examination Complaint/Exam Onset/Duration: just now Symptoms Are: Resolved Timing: Constant Initial Severity: Mild Current Severity: None Review of Systems - Review Of Systems Constitutional: Reports: No symptoms Eyes: Reports: No symptoms Ears, Nose, Mouth, Throat: Reports: No symptoms Respiratory: Reports: No symptoms Cardiac: Reports: No symptoms GI: Reports: No symptoms : Reports: No symptoms Musculoskeletal: Reports: No symptoms Skin: Reports: No symptoms Neurological: Reports: No symptoms Endocrine: Reports: No symptoms Hematologic/Lymphatic: Reports: No symptoms All Other Systems: Reviewed and Negative Past Medical History - Past Medical History Previously Healthy: No Endocrine: Reports: Unknown Cardiovascular: Reports: Unknown Respiratory: Reports: Unknown Hematological: Reports: Unknown Gastrointestinal: Reports: Unknown Genitourinary: Reports: Unknown Neuro/Psych: Reports: Bipolar Disorder Musculoskeletal: Reports: Unknown Cancer: Reports: Unknown - Surgical History General Surgical History: Reports: Unknown - Family History Family History: Reports: Unknown - Social History Smoking Status: Never smoker Hx Substance Use: No Alcohol Screening: Occasionally Physical Exam - Physical Exam Appearance: Well-appearing Eyes: ADELINA, EOMI, Conjunctiva clear ENT: Ears normal, Nose normal, Oropharynx normal Neck: Supple Respiratory: Airway patent Cardiovascular: RRR, Pulses normal, No rub, No murmur GI/: Soft, Nontender, No masses, Bowel sounds normal, No Organomegaly Musculoskeletal: Normal strength, ROM intact, No edema, No calf tenderness Skin: Warm, Dry, Normal color Neurological: Sensation intact, Motor intact, Reflexes intact, Cranial nerves intact, Alert, Oriented Psychiatric: Affect appropriate, Mood appropriate Critical Care Note - Critical Care Note Total Time (mins): 0 Departure - Departure Time of Disposition: 01:45 Disposition: HOME SELF-CARE Discharge Problem: Psychosis Qualifiers: Psychosis type: unspecified psychosis type Qualified Code(s): F29 - Unspecified psychosis not due to a substance or known physiological condition Instructions: Bipolar Disorder (ED) Condition: Good Pt referred to PMD for follow-up: Yes IPMP verified?: No Additional Instructions: f/u with pcp and mental health Allergies/Adverse Reactions: Allergies No Known Allergies Allergy (Verified 07/03/16 02:09) Home Medications: Ambulatory Orders Haloperidol [Haldol] 1 mg PO BID 06/05/17 Disposition Discussed With: Patient
[2017-07-08 04:32] VITALS: BP 132/81; TEMP 97.8
== END 2017-07-06 01:52 | disposition home or self-care (01) ==
LOC: ED 01:26
DX: F29 Unspecified psychosis not due to a substance or known physiological condition (principal); F31.9 Bipolar disorder, unspecified; Z76.0 Encounter for issue of repeat prescription; R44.0 Auditory hallucinations; F20.9 Schizophrenia, unspecified
CPT/HCPCS: 99282

== ENCOUNTER 2017-09-16 16:40 | Outpatient (CLI) | payer OTHER | END 2017-09-16 16:41 | disposition home or self-care (01) | LOC: FCC-LAB 16:40 | PROVIDERS: ATTEND Nurse Practitioner Family | DX: E78.5 Hyperlipidemia, unspecified (principal); F25.9 Schizoaffective disorder, unspecified; Z92.29 Personal history of other drug therapy | CPT/HCPCS: 36415; 80053; 80061; 85025 ==

== ENCOUNTER 2017-10-06 03:38 | Emergency (ER) ==
[2017-10-06 04:18] VITALS: BP 136/80; TEMP 97.8; BMI 32.5
--- NOTE | 2017-10-06 05:52 | ED.PDOC ---
General Stated Complaint: im having trouble sleeping Time Seen by Physician: 04:15 Mode of Arrival: Police Information Source: Patient, Police Exam Limitations: No limitations Nursing and Triage Documentation Reviewed and Agree: Yes Reviewed sepsis parameters & appropriate labs ordered?: Yes System Inflammatory Response Syndrome: Not Applicable <TONIO-ERDONYA - Last Filed: 10/06/17 05:49> <ELIZABETH ALMONTE - Last Filed: 10/06/17 09:21> ED Provider: Dr. ELIZABETH ALMONTE Chief Complaint: Psychiatric Complaint Primary Care Provider: ELLIOT LOPEZ Sepsis Protocol: For patient's 13 years and over: Temp is 96.8 and below OR 101 and greater Pulse >90 BPM Resp >20/minute Acutely Altered Mental Status Are patient's symptoms suggestive of a new infection, such as: -Pneumonia -Skin, Soft Tissue -Endocarditis -UTI -Bone, Joint Infection -Implantable Device -Acute Abdominal Infection -Wound Infection -Meningitis -Blood Stream Catheter Infection -Unknown Psychological Complaint Exam - Psychiatric Complaint/Exam Patient Complains Of: Present: Other Onset/Duration: 1-2 days Symptoms Are: Still present Timing: Intermittent Initial Severity: Mild Current Severity: Moderate Character: Present: Anxious Aggravating: Reports: Recent stress Associated Signs And Symptoms: Reports: Sleep disturbance Related History: Denies: Suicidal thoughts, Suicidal plan, Suicidal gestures Social Withdrawal Present: No Social Isolation Present: No Prior Suicide Attempt: No Injury From Prior Suicide Attempt: No Patient Uncooperative For Exam: No Mood: Present: Paranoid, Hallucinating, Anxious Appearance: Present: Clean Thought Process: Present: Illogical Insight: Present: Good Memory: Intact Danger To Others: No Patient Medically Stable For: Psych evaluation Differential Diagnoses: Bipolar Disorder, Schizophrenia <TONIONOEMIDONYA Last Filed: 10/06/17 05:49> Review of Systems - Review Of Systems Constitutional: Reports: No symptoms Eyes: Reports: No symptoms Ears, Nose, Mouth, Throat: Reports: No symptoms Respiratory: Reports: No symptoms Cardiac: Reports: No symptoms GI: Reports: No symptoms : Reports: No symptoms Musculoskeletal: Reports: No symptoms Skin: Reports: No symptoms Neurological: Reports: No symptoms Endocrine: Reports: No symptoms Hematologic/Lymphatic: Reports: No symptoms All Other Systems: Reviewed and Negative <GALEDONYA Last Filed: 10/06/17 05:49> Past Medical History - Past Medical History Previously Healthy: No Endocrine: Reports: Unknown Cardiovascular: Reports: Unknown Respiratory: Reports: Unknown Hematological: Reports: Unknown Gastrointestinal: Reports: Unknown Genitourinary: Reports: Unknown Neuro/Psych: Reports: Bipolar Disorder Musculoskeletal: Reports: Unknown Cancer: Reports: Unknown - Surgical History General Surgical History: Reports: Unknown - Family History Family History: Reports: Unknown - Social History Smoking Status: Never smoker Hx Substance Use: No Alcohol Screening: None - Immunizations Tetanus Shot up to Date: Yes <DONYA BEASLEY Last Filed: 10/06/17 05:49> Physical Exam - Physical Exam Appearance: Well-appearing, No pain distress, Well-nourished Eyes: ADELINA, EOMI, Conjunctiva clear ENT: Ears normal, Nose normal, Oropharynx normal Neck: Supple Respiratory: Airway patent, Breath sounds clear, Breath sounds equal, Respirations nonlabored Cardiovascular: RRR, Pulses normal, No rub, No murmur GI/: Soft, Nontender, No masses, Bowel sounds normal, No Organomegaly Musculoskeletal: Normal strength, ROM intact, No edema, No calf tenderness Skin: Warm, Dry, Normal color Neurological: Sensation intact, Motor intact, Reflexes intact, Cranial nerves intact, Alert, Oriented Psychiatric: Affect appropriate <DONYA BEASLEY Last Filed: 10/06/17 05:49> Critical Care Note - Critical Care Note Total Time (mins): 0 <ANJUMELIZABETH EDWARDS - Last Filed: 10/06/17 09:21> Course - Course Hematology/Chemistry: 10/06/17 04:05 10/06/17 04:05 <DONYA BEASLEY - Last Filed: 10/06/17 05:49> - Course Hematology/Chemistry: 10/06/17 04:05 10/06/17 04:05 <GAGEELIZABETH - Last Filed: 10/06/17 09:21> - Course Orders, Labs, Meds: Lab Review 10/06/17 10/06/17 10/06/17 04:05 04:05 04:21 WBC 9.19 RBC 4.27 L Hgb 13.3 L Hct 38.1 L MCV 89.2 MCH 31.1 H MCHC 34.9 RDW Coeff of Willie 13.1 Plt Count 190 Immature Gran % (Auto) 0.4 Neut % (Auto) 58.3 Lymph % (Auto) 28.2 [place] % (Auto) 10.3 H Eos % (Auto) 2.0 Baso % (Auto) 0.8 Immature Gran # (Auto) 0.0 Neut # (Auto) 5.4 Lymph # (Auto) 2.6 [place] # (Auto) 1.0 Eos # (Auto) 0.2 Baso # (Auto) 0.1 Sodium 139 Potassium 3.9 Chloride 106 Carbon Dioxide 22 Anion Gap 14.9 BUN 12 Creatinine 1.12 H Estimated GFR (MDRD) 85.00 BUN/Creatinine Ratio 10.71 Glucose 117 H Calcium 9.8 Total Bilirubin 1.6 H AST 27 ALT 33 Alkaline Phosphatase 72 Total Protein 7.5 Albumin 3.7 Globulin 3.8 Albumin/Globulin Ratio 0.97 TSH 1.829 Urine Opiates Screen Negative Ur Oxycodone Screen Negative Urine Methadone Screen Negative Ur Propoxyphene Screen Negative Ur Barbiturates Screen Negative U Tricyclic Antidepress Negative Ur Phencyclidine Scrn Negative Ur Amphetamine Screen Negative U Methamphetamines Scrn Negative U Benzodiazepines Scrn Positive Urine Cocaine Screen Negative U Cannabinoids Screen Negative Orders Category Date Time Status Consult Mental Health [ED MENTAL HEALTH CONSULT] .ONCE EMERGENCY 10/06/17 03: 50 Active CBC W/ AUTO DIFF Stat LAB 10/06/17 04:05 Completed COMPREHENSIVE METABOLIC PANEL Stat LAB 10/06/17 04:05 Completed DRUG SCREEN, URINE, RAPID Stat LAB 10/06/17 04:21 Completed THYROID STIMULATING HORMONE Stat LAB 10/06/17 04:05 Completed Vital Signs: Temp Pulse Resp BP Pulse Ox 10/06/17 04:11 97.8 F 75 16 136/80 97 Departure <DONYA BEASLEY - Last Filed: 10/06/17 05:49> - Departure Time of Disposition: 09:20 Pt referred to PMD for follow-up: Yes IPMP verified?: No Disposition Discussed With: Patient <ELIZABETH ALMONTE - Last Filed: 10/06/17 09:21> - Departure Disposition: HOME SELF-CARE Discharge Problem: Anxiety Instructions: Medicine Refill (ED) Condition: Good Additional Instructions: follow up with [facility] as instructed--return as needed Allergies/Adverse Reactions: Allergies No Known Allergies Allergy (Verified 07/03/16 02:09) Home Medications: Ambulatory Orders Haloperidol [Haldol] 1 mg PO BID 06/05/17 Benztropine Mesylate [Cogentin] 1 mg PO BID PRN 09/16/17
== END 2017-10-06 09:20 | disposition home or self-care (01) ==
LOC: ED 03:38
DX: F41.9 Anxiety disorder, unspecified (principal)
CPT/HCPCS: 36415; 80053; 80306; 84443; 85025; 99283

== ENCOUNTER 2017-10-08 13:17 | Emergency (ER) | payer OTHER ==
[2017-10-08 13:28] VITALS: BMI 31.8
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
[2017-10-08] MEDS ORDERED: ATIVAN PO STA (22:00)
[2017-10-08] MEDS ORDERED: HALDOL PO STA ×2 (22:00→22:05)
[2017-10-08 22:21] VITALS: BP 140/90; TEMP 97.6
== END 2017-10-08 23:30 | disposition short-term general hospital (02) ==
LOC: ED 13:17
DX: F41.9 Anxiety disorder, unspecified (principal); F98.9 Unspecified behavioral and emotional disorders with onset usually occurring in childhood and adolescence
CPT/HCPCS: 36415; 80053; 80306; 80307; 81001; 85025; 93005; 93010; 99285

== ENCOUNTER 2017-10-28 16:23 | Outpatient (CLI) | END 2017-10-28 16:24 | disposition home or self-care (01) | LOC: FCC-LAB 16:23 | PROVIDERS: ATTEND Nurse Practitioner Family | DX: F25.9 Schizoaffective disorder, unspecified (principal); G40.909 Epilepsy, unspecified, not intractable, without status epilepticus; Z79.899 Other long term (current) drug therapy | CPT/HCPCS: 36415; 80053; 81001; 85025 ==

== ENCOUNTER 2017-11-22 17:48 | Emergency (ER) ==
[2017-11-22 17:57] VITALS: BP 136/86; TEMP 97.6; BMI 32.3
--- NOTE | 2017-11-22 19:07 | ED.PDOC ---
General ED Provider: Dr. KEVIN LAWTON Chief Complaint: Behavioral Complaint Stated Complaint: Patient states that he stopped taking his medications for unknown reason Time Seen by Physician: 19:04 Mode of Arrival: Walk-In Information Source: Patient Primary Care Provider: ELLIOT LOPEZ Nursing and Triage Documentation Reviewed and Agree: Yes Does patient meet sepsis criteria?: No If yes, has appropriate treatment been initiated?: No System Inflammatory Response Syndrome: Not Applicable Sepsis Protocol: For patient's 13 years and over: Temp is 96.8 and below OR 101 and greater Pulse >90 BPM Resp >20/minute Acutely Altered Mental Status Are patient's symptoms suggestive of a new infection, such as: -Pneumonia -Skin, Soft Tissue -Endocarditis -UTI -Bone, Joint Infection -Implantable Device -Acute Abdominal Infection -Wound Infection -Meningitis -Blood Stream Catheter Infection -Unknown Review of Systems - Review Of Systems Constitutional: Reports: No symptoms Neurological: Reports: Anxiety, Emotional problems All Other Systems: Reviewed and Negative Past Medical History - Past Medical History Previously Healthy: Yes Endocrine: Reports: None Cardiovascular: Reports: None Respiratory: Reports: None Hematological: Reports: None Gastrointestinal: Reports: None Genitourinary: Reports: None Neuro/Psych: Reports: Anxiety, Depression, Schizophrenia Musculoskeletal: Reports: None Cancer: Reports: None - Surgical History General Surgical History: Reports: Unknown - Family History Family History: Reports: Unknown - Social History Smoking Status: Never smoker Hx Substance Use: No Alcohol Screening: Occasionally Physical Exam - Physical Exam Appearance: Well-appearing, No pain distress, Well-nourished Eyes: ADELINA, EOMI, Conjunctiva clear ENT: Ears normal, Nose normal, Oropharynx normal Respiratory: Airway patent, Breath sounds clear, Breath sounds equal, Respirations nonlabored Cardiovascular: RRR, Pulses normal, No rub, No murmur GI/: Soft, Nontender, No masses, Bowel sounds normal, No Organomegaly Musculoskeletal: Normal strength, ROM intact, No edema, No calf tenderness Skin: Warm, Dry, Normal color Neurological: Sensation intact, Motor intact, Reflexes intact, Cranial nerves intact, Alert, Oriented Psychiatric: Anxious (not depressed. ) Critical Care Note - Critical Care Note Total Time (mins): 0 Course - Course Orders, Labs, Meds: Lab Review 11/22/17 19:00 Urine Opiates Screen Negative Ur Oxycodone Screen Negative Urine Methadone Screen Negative Ur Propoxyphene Screen Negative Ur Barbiturates Screen Negative U Tricyclic Antidepress Negative Ur Phencyclidine Scrn Negative Ur Amphetamine Screen Negative U Methamphetamines Scrn Negative U Benzodiazepines Scrn Negative Urine Cocaine Screen Negative U Cannabinoids Screen Negative Orders Category Date Time Status Mental Health Consult [ED MENTAL HEALTH CONSULT] .ONCE EMERGENCY 11/22/17 19: 03 Active DRUG SCREEN, URINE, RAPID Stat LAB 11/22/17 19:00 Completed Vital Signs: Temp Pulse Resp BP Pulse Ox 11/22/17 17:50 97.6 F 73 16 136/86 96 Departure - Departure Time of Disposition: 19:48 Disposition: HOME SELF-CARE Discharge Problem: Anxiety, Schizophrenia Instructions: Schizophrenia (ED) Condition: Stable Pt referred to PMD for follow-up: Yes IPMP verified?: No Additional Instructions: Take Your medications as prescribed Follow up with you Mental health provider as scheduled. Allergies/Adverse Reactions: Allergies No Known Allergies Allergy (Verified 11/22/17 17:59) Home Medications: Ambulatory Orders Haloperidol [Haldol] 1 mg PO BID 06/05/17 Benztropine Mesylate [Cogentin] 1 mg PO BID PRN 09/16/17 Lorazepam 2 mg PO BID 11/22/17 Disposition Discussed With: Patient Discharge Problem: Schizophrenia Qualifiers: Schizophrenia type: unspecified Qualified Code(s): F20.9 - Schizophrenia, unspecified
== END 2017-11-22 20:00 | disposition home or self-care (01) ==
LOC: ED 17:48
DX: F41.9 Anxiety disorder, unspecified (principal); F20.9 Schizophrenia, unspecified; Z91.14 Patient's other noncompliance with medication regimen
CPT/HCPCS: 80306; 99284

== ENCOUNTER 2018-02-17 15:47 | Emergency (ER) | payer OTHER ==
[2018-02-17 15:51] VITALS: BP 90/52; TEMP 97.6; BMI 32.8
[2018-02-17] MEDS ORDERED: LIDOCAINE HCL 1% SDV SUBCUT STA (16:02)
[2018-02-17] MEDS ORDERED: LIDOCAINE HCL 1% SDV ONE (16:03)
[2018-02-17] MEDS ORDERED: BOOSTRIX IM ONE (16:19)
--- NOTE | 2018-02-17 16:27 | ED.PDOC ---
General ED Provider: Dr. DONYA FINN Chief Complaint: Foot Pain/Injury Stated Complaint: I have Glass in my Lt foot. Stepped on glass this morning while sweeping the kitchen floor. My Lt foot is painful and it is difficult putting weight on my Lt foot. I believe there is a fragment of glass stuck in the bottom of his Lt foot. Wound approximately 0.5 cm. Time Seen by Physician: 16:10 Mode of Arrival: Walk-In Information Source: Patient Exam Limitations: No limitations Primary Care Provider: ELLIOT LOPEZ Nursing and Triage Documentation Reviewed and Agree: Yes Does patient meet sepsis criteria?: No System Inflammatory Response Syndrome: Not Applicable Sepsis Protocol: For patient's 13 years and over: Temp is 96.8 and below OR 101 and greater Pulse >90 BPM Resp >20/minute Acutely Altered Mental Status Are patient's symptoms suggestive of a new infection, such as: -Pneumonia -Skin, Soft Tissue -Endocarditis -UTI -Bone, Joint Infection -Implantable Device -Acute Abdominal Infection -Wound Infection -Meningitis -Blood Stream Catheter Infection -Unknown Trauma/Injury Complaint Exam - Trauma Complaint/Exam Location of Pain or Injury: Reports: LLE (Lt foot plantar surface over calcaneus.) Mechanism of Injury: Reports: Penetrating trauma Onset/Duration: Earlier today Symptoms Are: Still present Timing of Treatment: Delayed Initial Severity: Mild Current Severity: Mild Character: Reports: Sharp Aggravating: Reports: Movement, Weight-bearing Alleviating: Reports: Rest, Elevation Associated Signs and Symptoms: Denies: LOC, Confusion, Memory loss, Lethargy, Vomiting, Bleeding, Bruising, Swelling, Extremity disuse, Painful respiration, Hoarseness, Dysphagia, Hemoptysis, Significant blood loss Related History: Denies: Similar episode Penetrating Injury Risk Factors: Reports: None Trauma Findings: Present: Uncooperative (localized puncture wound mid plantar surface lt foot) Differential Diagnoses: Other (puncture wouund lt foot) Review of Systems - Review Of Systems Constitutional: Reports: No symptoms Eyes: Reports: No symptoms Ears, Nose, Mouth, Throat: Reports: No symptoms Respiratory: Reports: No symptoms Cardiac: Reports: No symptoms GI: Reports: No symptoms : Reports: No symptoms Musculoskeletal: Reports: No symptoms Skin: Reports: No symptoms Neurological: Reports: No symptoms, Other (psychiatric illness) Endocrine: Reports: No symptoms Hematologic/Lymphatic: Reports: No symptoms All Other Systems: Reviewed and Negative Past Medical History - Past Medical History Previously Healthy: Yes Endocrine: Reports: None Cardiovascular: Reports: None Respiratory: Reports: None Hematological: Reports: None Gastrointestinal: Reports: None Genitourinary: Reports: None Neuro/Psych: Reports: Anxiety, Depression, Schizophrenia Musculoskeletal: Reports: None Cancer: Reports: None - Surgical History General Surgical History: Reports: Unknown - Family History Family History: Reports: Unknown - Social History Smoking Status: Never smoker Hx Substance Use: No Alcohol Screening: Occasionally - Immunizations Tetanus Shot up to Date: No Physical Exam - Physical Exam Appearance: Well-appearing, No pain distress, Well-nourished Eyes: ADELINA, EOMI, Conjunctiva clear ENT: Ears normal, Nose normal, Oropharynx normal Respiratory: Airway patent, Breath sounds clear, Breath sounds equal, Respirations nonlabored Cardiovascular: RRR, Pulses normal, No rub, No murmur GI/: Soft, Nontender, No masses, Bowel sounds normal, No Organomegaly Musculoskeletal: Normal strength, ROM intact, No edema, No calf tenderness Skin: Warm, Dry, Normal color Neurological: Sensation intact, Motor intact, Reflexes intact, Cranial nerves intact, Alert, Oriented Psychiatric: Affect appropriate, Mood appropriate Procedures - Foreign Body Removal Location of Foreign Object: Plantar surface Lt Foot-distal 1/3 Foreign Object: Piece of Glass Depth of Object: Superficial Type of Anesthesia: Local Medication Used: Yes: Lidocaine, Other (Boostrix) Prep: Saline, Betadine, Hibiclens Irrigation: Yes Skin Incised: Yes (1 cm) Instruments Used: Yes: Forceps Foreign Body Identified and Removed: Yes (Small fragment of glass removed from subcutaneous region -) - Additional Procedures Additional Procedures: Other (Suturing wound to reapproximated wound edges(3-0 nylon 2 sutures simple fashion)) Critical Care Note - Critical Care Note Total Time (mins): 0 Course - Course Orders, Labs, Meds: Orders Category Date Time Status Diphth,Pertuss(Acell),Tet Vac [Boostrix] MEDS 02/17/18 16:19 Discontinued 0.5 ml IM .ONCE ONE Lidocaine HCl/Pf [Lidocaine HCl 1% Sdv] MEDS 02/17/18 16:03 Discontinued 5 ml .ROUTE .STK-MED ONE Lidocaine HCl/Pf [Lidocaine HCl 1% Sdv] MEDS 02/17/18 16:02 Discontinued 5 ml SUBCUT ONCE STA Medications Discontinued Medications Generic Name Dose Route Start Last Admin Trade Name Lilly PRN Reason Stop Dose Admin Diphtheria/Pertussis/Tetanus Vacc 0.5 ml 02/17/18 16:19 02/17/18 16:24 Boostrix IM 02/17/18 16:20 0.5 ml .ONCE ONE Administration Lidocaine HCl 5 ml 02/17/18 16:02 02/17/18 16:07 Lidocaine Hcl 1% Sdv SUBCUT 02/17/18 16:03 5 ml ONCE STA Administration Vital Signs: Temp Pulse Resp BP Pulse Ox 02/17/18 15:48 97.6 F 93 H 18 90/52 L 97 Departure - Departure Time of Disposition: 16:20 Disposition: HOME SELF-CARE Discharge Problem: Puncture wound of foot, left Instructions: Care For Your Stitches (ED), Puncture Wound (ED) Condition: Good Pt referred to PMD for follow-up: Yes (1week) IPMP verified?: No Additional Instructions: Wound Care as directed. Analgesics Ibuprofen or Tylenol for pain as directed Follow up PCP in 1 week for recheck Allergies/Adverse Reactions: Allergies No Known Allergies Allergy (Verified 11/22/17 17:59) Home Medications: Ambulatory Orders Haloperidol [Haldol] 1 mg PO BID 06/05/17 Benztropine Mesylate [Cogentin] 1 mg PO BID PRN 09/16/17 Lorazepam 2 mg PO BID 11/22/17 Disposition Discussed With: Patient Additional Comments Additional Comments: Nursing staff cautioned patients PMHx and previous uncooperative -aggressive behavior. During course of visit, patient very cooperative, agreeable to treatment and expressed understanding to instrucitions for cared after discharge to home. Follow wound care instructions and to See PCP in 7 days for recheck.
== END 2018-02-17 16:36 | disposition home or self-care (01) ==
LOC: ED 15:47
DX: S91.322A Laceration with foreign body, left foot, initial encounter (principal); W25.XXXA Contact with sharp glass, initial encounter; W45.8XXA Other foreign body or object entering through skin, initial encounter
CPT/HCPCS: 90471; 90715; 99283

== ENCOUNTER 2018-02-22 09:47 | Outpatient (CLI) ==
--- NOTE | 2018-02-22 10:51 | CT ---
EXAM: CT of the abdomen pelvis with and without contrast History: Right renal mass. Comparison: CT abdomen pelvis 07/06/2011 Technique: Multiplanar CT images through the abdomen pelvis were obtained with and without the admin istration of IV contrast Findings: Lung bases are clear. No acute osseous abnormalities. No renal stones and no hydronephrosis. No ureteral calculi. Cholelithiasis. 4.1 cm simple cyst wit hin the right kidney. No enhancing renal masses. No abdominal aortic aneurysm. Adrenal glands are unremarkable. Pancreas is within normal limits. No focal liver or splenic lesions. No dilated loop s of bowel. The appendix is normal. No bladder wall thickening. Prostate is not enlarged. No free air and no ascites. No inflammatory stranding. Scattered colonic stool. Impression: 1. No acute intra-abdominal or pelvic process. 2. Simple right renal cyst. No suspicious renal masses. No additional follow-up is needed. 3. Cholelithiasis.
== END 2018-02-22 09:48 | disposition home or self-care (01) ==
LOC: RAD 09:47
PROVIDERS: ATTEND Internal Medicine Nephrology
DX: N28.89 Other specified disorders of kidney and ureter (principal)

== ENCOUNTER 2018-04-10 14:15 | Emergency (ER) | payer OTHER ==
[2018-04-10 14:20] VITALS: BP 0/0; TEMP 0; BMI 20.3
--- NOTE | 2018-04-10 14:52 | ED.PDOC ---
General ED Provider: Dr. DONYA FINN Chief Complaint: Behavioral Complaint Stated Complaint: Here to talk to someone. Speech garbled and rapid at times difficult to understand. States out of meds. Refusing offers of help to give him his meds. Hx of schizophrenia and acting out when out of meds.Refused to have VS taken Time Seen by Physician: 14:30 Mode of Arrival: Walk-In Information Source: Patient Exam Limitations: Clinical condition, Altered mental status Primary Care Provider: JOHN LONG Nursing and Triage Documentation Reviewed and Agree: Yes Does patient meet sepsis criteria?: No System Inflammatory Response Syndrome: Not Applicable Sepsis Protocol: For patient's 13 years and over: Temp is 96.8 and below OR 101 and greater Pulse >90 BPM Resp >20/minute Acutely Altered Mental Status Are patient's symptoms suggestive of a new infection, such as: -Pneumonia -Skin, Soft Tissue -Endocarditis -UTI -Bone, Joint Infection -Implantable Device -Acute Abdominal Infection -Wound Infection -Meningitis -Blood Stream Catheter Infection -Unknown Psychological Complaint Exam - Psychiatric Complaint/Exam Patient Complains Of: Present: Other Symptoms Are: Still present Timing: Constant Episodes Lasting: Weeks Initial Severity: Moderate Current Severity: Moderate Character: Present: Manic, Fearful, Anxious, Frustrated Aggravating: Reports: Recent stress Associated Signs And Symptoms: Reports: Confused, Hallucinating, Paranoid behavior Related History: Denies: Suicidal gestures, Homicidal thoughts, Homicidal plan, Homicidal gestures, Prior attempts Completed Suicide Risk Factors: None Patient In Custody Of Police: No Social Isolation Present: Yes Patient Uncooperative For Exam: Yes (accepting treatment-denies harmful thoughts ) Mood: Present: Paranoid, Anxious, Hearing voices Appearance: Present: Clean Thought Process: Present: Illogical, Flight of ideas Insight: Present: Poor Memory: Impaired Judgement: Impaired Differential Diagnoses: Schizophrenia Review of Systems - Review Of Systems Constitutional: Reports: No symptoms Eyes: Reports: No symptoms Ears, Nose, Mouth, Throat: Reports: No symptoms Respiratory: Reports: No symptoms Cardiac: Reports: No symptoms GI: Reports: No symptoms : Reports: No symptoms Musculoskeletal: Reports: No symptoms Skin: Reports: No symptoms Neurological: Reports: No symptoms Endocrine: Reports: No symptoms Hematologic/Lymphatic: Reports: No symptoms All Other Systems: Reviewed and Negative Past Medical History - Past Medical History Previously Healthy: Yes Endocrine: Reports: None Cardiovascular: Reports: None Respiratory: Reports: None Hematological: Reports: None Gastrointestinal: Reports: None Genitourinary: Reports: None Neuro/Psych: Reports: Anxiety, Depression, Schizophrenia Musculoskeletal: Reports: None Cancer: Reports: None - Surgical History General Surgical History: Reports: Unknown - Family History Family History: Reports: Unknown - Social History Smoking Status: Never smoker Hx Substance Use: No Alcohol Screening: Occasionally Physical Exam - Physical Exam Appearance: Well-appearing Ill-appearing: Mild Pain Distress: None Eyes: ADELINA, EOMI, Conjunctiva clear ENT: Ears normal, Nose normal, Oropharynx normal Neck: Supple Respiratory: Airway patent, Breath sounds clear, Breath sounds equal, Respirations nonlabored Cardiovascular: RRR GI/: Soft, Nontender, No masses, Bowel sounds normal, No Organomegaly Musculoskeletal: Normal strength, ROM intact, No edema, No calf tenderness Skin: Warm, Dry, Normal color Neurological: Sensation intact, Motor intact, Reflexes intact, Cranial nerves intact, Alert, Oriented Psychiatric: Anxious (Inappropriate mood/) Critical Care Note - Critical Care Note Total Time (mins): 0 Course - Course Vital Signs: Temp Pulse Resp BP Pulse Ox 04/10/18 14:16 0 F L 0 L 0 L 0/0 L 0 L Departure - Departure Time of Disposition: 14:45 Disposition: HOME SELF-CARE Discharge Problem: Schizophrenia Instructions: Schizophrenia (ED), Psychotic Disorder (ED) Condition: Stable Pt referred to PMD for follow-up: Yes IPMP verified?: No Additional Instructions: Offered to provide meds to help but refused. Walked out of ER and building without accepting help Allergies/Adverse Reactions: Allergies No Known Allergies Allergy (Verified 04/10/18 14:23) Home Medications: Ambulatory Orders Haloperidol [Haldol] 1 mg PO BID 06/05/17 Benztropine Mesylate [Cogentin] 1 mg PO BID PRN 09/16/17 Lorazepam 2 mg PO BID 11/22/17 Disposition Discussed With: Patient (Lt department without treatment)
== END 2018-04-10 14:45 | disposition left against medical advice (07) ==
LOC: ED 14:15
DX: F20.9 Schizophrenia, unspecified (principal); R41.82 Altered mental status, unspecified; R47.89 Other speech disturbances; Z91.14 Patient's other noncompliance with medication regimen
CPT/HCPCS: 99283

== ENCOUNTER 2018-07-21 16:29 | Emergency (ER) ==
[2018-07-21 16:37] VITALS: BMI 33.3
--- NOTE | 2018-07-21 17:05 | ED.PDOC ---
General Stated Complaint: Patient brought to ER by Dr Long and [facility] counselor. Since being discharged from [facility], Has not been compliant with meds and now have fluctuations in moods and their is concern over his potential further decompensation .Hx of Eratic and violent behavior in past and currently is refusing psychiatric treatment. Rambling and talking to self. Time Seen by Physician: 16:30 Mode of Arrival: Walk-In Information Source: Patient, Other <DONYA FINN - Last Filed: 07/21/18 19:49> Exam Limitations: No limitations Nursing and Triage Documentation Reviewed and Agree: Yes Does patient meet sepsis criteria?: No System Inflammatory Response Syndrome: Not Applicable <KEVIN LAWTON - Last Filed: 07/23/18 04:03> ED Provider: Dr. KEVIN LAWTON Chief Complaint: Psychiatric Complaint Primary Care Provider: JOHN LONG Sepsis Protocol: For patient's 13 years and over: Temp is 96.8 and below OR 101 and greater Pulse >90 BPM Resp >20/minute Acutely Altered Mental Status Are patient's symptoms suggestive of a new infection, such as: -Pneumonia -Skin, Soft Tissue -Endocarditis -UTI -Bone, Joint Infection -Implantable Device -Acute Abdominal Infection -Wound Infection -Meningitis -Blood Stream Catheter Infection -Unknown Psychological Complaint Exam - Psychiatric Complaint/Exam Patient Complains Of: Present: Depression Onset/Duration: unknown Symptoms Are: Still present Timing: Constant Initial Severity: Severe Current Severity: Severe Character: Present: Depressed, Fearful, Anxious, Angry, Frustrated Aggravating: Reports: Medication noncompliance Associated Signs And Symptoms: Reports: Confused, Hallucinating, Paranoid behavior, Sleep disturbance Completed Suicide Risk Factors: Male Patient Accompanied By: Other (PCP.) Patient In Custody Of Police: No Social Withdrawal Present: Yes Social Isolation Present: Yes Related Surgical History: Reports: None Patient Uncooperative For Exam: Yes Mood: Present: Angry, Paranoid, Hallucinating, Agitated, Anxious, Hearing voices Appearance: Present: Clean Thought Process: Present: Illogical, Flight of ideas Insight: Present: Poor Memory: Impaired Judgement: Impaired Danger To Others: Yes Patient Medically Stable For: Psych evaluation Differential Diagnoses: Schizophrenia <KEVIN LAWTON - Last Filed: 07/23/18 04:03> Review of Systems - Review Of Systems Constitutional: Reports: No symptoms Eyes: Reports: No symptoms Ears, Nose, Mouth, Throat: Reports: No symptoms Respiratory: Reports: No symptoms Cardiac: Reports: No symptoms GI: Reports: No symptoms : Reports: No symptoms Musculoskeletal: Reports: No symptoms Skin: Reports: No symptoms Neurological: Reports: No symptoms Endocrine: Reports: No symptoms Hematologic/Lymphatic: Reports: No symptoms All Other Systems: Reviewed and Negative <DONYA FINN - Last Filed: 07/21/18 19:49> Past Medical History - Past Medical History Previously Healthy: Yes Endocrine: Reports: None Cardiovascular: Reports: None Respiratory: Reports: None Hematological: Reports: None Gastrointestinal: Reports: None Genitourinary: Reports: None Neuro/Psych: Reports: Anxiety, Depression, Schizophrenia Musculoskeletal: Reports: None Cancer: Reports: None - Surgical History General Surgical History: Reports: Unknown - Family History Family History: Reports: Unknown - Social History Smoking Status: Never smoker Hx Substance Use: No Alcohol Screening: Occasionally <DONYA FINN - Last Filed: 07/21/18 19:49> Physical Exam - Physical Exam Appearance: Well-appearing, No pain distress, Well-nourished Ill-appearing: None Pain Distress: None Eyes: ADELINA, EOMI, Conjunctiva clear ENT: Ears normal, Nose normal, Oropharynx normal Neck: Supple Respiratory: Airway patent, Breath sounds clear, Breath sounds equal, Respirations nonlabored Cardiovascular: RRR, Pulses normal, No rub, No murmur GI/: Soft, Nontender, No masses, Bowel sounds normal, No Organomegaly Musculoskeletal: Normal strength, ROM intact, No edema, No calf tenderness Skin: Warm, Dry, Normal color Neurological: Sensation intact, Motor intact, Reflexes intact, Cranial nerves intact, Alert, Oriented Psychiatric: Anxious (abnormal affect, delusional and paranoid) <DONYA FINN - Last Filed: 07/21/18 19:49> Physician Notification - Case Discussed Physician Notified: Signed out to Dr Maki Time of Notification: 19:30 <DONYA FINN - Last Filed: 07/21/18 19:49> Critical Care Note <DONYA FINN - Last Filed: 07/21/18 19:49> - Critical Care Note Total Time (mins): 0 <KEVIN LAWTON - Last Filed: 07/23/18 04:03> - Critical Care Note Comments: NO MEDICATIONS WERE GIVEN DURING THIS ER VISIT (KEVIN LAWTON) Course - Course Hematology/Chemistry: 07/22/18 10:00 07/22/18 10:00 <KEVIN LAWTON - Last Filed: 07/23/18 04:03> - Course Orders, Labs, Meds: Lab Review 07/22/18 07/22/18 07/22/18 10:00 10:00 10:00 WBC 7.53 RBC 4.35 L Hgb 13.1 L Hct 39.1 L MCV 89.9 MCH 30.1 MCHC 33.5 RDW Coeff of Willie 14.6 Plt Count 197 Immature Gran % (Auto) 0.5 Neut % (Auto) 57.4 Lymph % (Auto) 25.8 [place] % (Auto) 13.3 H Eos % (Auto) 2.1 Baso % (Auto) 0.9 Immature Gran # (Auto) 0.0 Neut # (Auto) 4.3 Lymph # (Auto) 1.9 [place] # (Auto) 1.0 Eos # (Auto) 0.2 Baso # (Auto) 0.1 Sodium 140.7 Potassium 4.03 Chloride 99.3 Carbon Dioxide 32.9 H Anion Gap 12.53 BUN 14.5 Creatinine 1.03 Estimated GFR (MDRD) 93.00 BUN/Creatinine Ratio 14.07 Glucose 109.8 H Calcium 9.20 Total Bilirubin 0.66 AST 46.6 ALT 52.1 H Alkaline Phosphatase 67.4 Total Protein 7.95 Albumin 4.22 Globulin 3.73 Albumin/Globulin Ratio 1.13 TSH Urine Color Yellow Urine Clarity Clear Urine pH 7.0 Ur Specific [place] 1.010 Urine Protein Negative Urine Glucose (UA) Negative Urine Ketones Negative Urine Blood Negative Urine Nitrite Negative Urine Bilirubin Negative Urine Urobilinogen 0.2 Ur Leukocyte Esterase Negative Salicylate Level mg/dL < 1.00 Urine Opiates Screen Ur Oxycodone Screen Urine Methadone Screen Ur Propoxyphene Screen Acetaminophen < 10.0 L Ur Barbiturates Screen Valproic Acid U Tricyclic Antidepress Ur Phencyclidine Scrn Ur Amphetamine Screen U Methamphetamines Scrn U Benzodiazepines Scrn Urine Cocaine Screen U Cannabinoids Screen Plasma/Serum Alcohol < 10.0 07/22/18 07/22/18 07/22/18 10:00 10:00 10:13 WBC RBC Hgb Hct MCV MCH MCHC RDW Coeff of [place] Plt Count Immature Gran % (Auto) Neut % (Auto) Lymph % (Auto) [place] % (Auto) Eos % (Auto) Baso % (Auto) Immature Gran # (Auto) Neut # (Auto) Lymph # (Auto) [place] # (Auto) Eos # (Auto) Baso # (Auto) Sodium Potassium Chloride Carbon Dioxide Anion Gap BUN Creatinine Estimated GFR (MDRD) BUN/Creatinine Ratio Glucose Calcium Total Bilirubin AST ALT Alkaline Phosphatase Total Protein Albumin Globulin Albumin/Globulin Ratio TSH 1.370 Urine Color Urine Clarity Urine pH Ur Specific [place] Urine Protein Urine Glucose (UA) Urine Ketones Urine Blood Urine Nitrite Urine Bilirubin Urine Urobilinogen Ur Leukocyte Esterase Salicylate Level mg/dL Urine Opiates Screen Negative Ur Oxycodone Screen Negative Urine Methadone Screen Negative Ur Propoxyphene Screen Negative Acetaminophen Ur Barbiturates Screen Negative Valproic Acid < 10.00 L U Tricyclic Antidepress Negative Ur Phencyclidine Scrn Negative Ur Amphetamine Screen Negative U Methamphetamines Scrn Negative U Benzodiazepines Scrn Negative Urine Cocaine Screen Negative U Cannabinoids Screen Negative Plasma/Serum Alcohol Orders Category Date Time Status EKG-(ED ONLY) Stat CARDIO 07/22/18 09:52 Completed ED GLOVE PRESSER APPLIED ONCE EMERGENCY 07/22/18 09:52 Active ACETAMINOPHEN Stat LAB 07/22/18 10:00 Completed BLOOD ALCOHOL Stat LAB 07/22/18 10:00 Completed CBC W/ AUTO DIFF Stat LAB 07/22/18 10:00 Completed COMPREHENSIVE METABOLIC PANEL Stat LAB 07/22/18 10:00 Completed DRUG SCREEN, URINE, RAPID Stat LAB 07/22/18 10:13 Completed SALICYLATE Stat LAB 07/22/18 10:00 Completed TSH [THYROID STIMULATING HORMONE] Stat LAB 07/22/18 10:00 Completed URINALYSIS C & S IF INDICATED Stat LAB 07/22/18 10:00 Completed VALPORIC ACID (DEPAKENE) Stat LAB 07/22/18 10:00 Completed Vital Signs: Temp Pulse Resp BP Pulse Ox 07/22/18 23:45 97.8 F 76 18 124/88 100 07/22/18 16:47 97.9 F 80 20 126/91 H 100 07/21/18 16:30 97.5 F L 86 20 129/83 96 Departure - Departure Time of Disposition: 19:30 (Awaiting transport service) Pt referred to PMD for follow-up: Yes IPMP verified?: No Disposition Discussed With: Patient <KUPFERER,DONYA - Last Filed: 07/21/18 19:49> - Departure Time of Disposition: 01:30 <KEVIN LAWTON - Last Filed: 07/23/18 04:03> - Departure Disposition: TSF TO PSYCH HOSP/UNIT Discharge Problem: Schizo-affective psychosis Condition: Stable Allergies/Adverse Reactions: Allergies No Known Allergies Allergy (Verified 04/10/18 14:23) Home Medications: Ambulatory Orders Benztropine Mesylate [Cogentin] 1 mg PO BID PRN 09/16/17 Lorazepam 2 mg PO BID 11/22/17 Benztropine Mesylate 2 mg PO TID 07/21/18 Cholcalcierol 1,000 units DAILY 07/21/18 Clonazepam 0.5 mg PO BID 07/21/18 Clonazepam 1 mg PO TID 07/21/18 Divalproex Sodium [Divalproex Sodium Er] 250 mg PO DAILY 07/21/18 Divalproex Sodium [Divalproex Sodium Er] 500 mg PO BEDTIME 07/21/18 Docusate Sodium 100 mg PO BID 07/21/18 Haloperidol 5 mg PO BID 07/21/18 Haloperidol 10 mg PO TID 07/21/18 <DONYA FINN - Last Filed: 07/21/18 19:49> <KEVIN LAWTON - Last Filed: 07/23/18 04:03> Additional Information: Mental health in department arranging for psych hosp admit Patient uncooperative and refusing to give urine specimen Lab ordered but doubtful will allow phlebotomy to obtain specimen (DONYA FINN) Discharge Problem: Schizo-affective psychosis Qualifiers: Schizoaffective disorder type: unspecified Qualified Code(s): F25.9 - Schizoaffective disorder, unspecified
[2018-07-22 23:45] VITALS: BP 124/88; TEMP 97.8
== END 2018-07-23 01:30 ==
LOC: ED 16:29
DX: F25.9 Schizoaffective disorder, unspecified (principal); Z91.14 Patient's other noncompliance with medication regimen
CPT/HCPCS: 36415; 80053; 80164; 80306; 80307; 81001; 84443; 85025; 93005; 93010; 99285